=== PATIENT | female | born 1985 | race Hispanic/Latino ===

== ENCOUNTER 2017-09-12 10:29 | Observation (INO) | payer MEDICAID ==
[~2017-09-12] VITALS: Ht 157.5 cm; Wt 77.1 kg
[2017-09-12] MEDS ORDERED: PROMETHAZINE HCL 25 MG/ML 1ML AMPULE IM SCH (10:45)
[2017-09-12] MEDS: LACTATED RINGERS 1000ML IV SCH ×2 (11:10→12:21)
[2017-09-12 11:41] LABS: BASOPHILS % (AUTO) 0.3 % (0.0-5.0); EOSINOPHILS % (AUTO) 0.6 % (0.0-8.0); HEMATOCRIT 31.4 % (36-48); LYMPHOCYTES % (AUTO) 19.8 % (21.0-51.0); MEAN CORPUSCULAR HGB CONC 33.2 g/dL (32.0-36.0); MEAN CORPUSCULAR VOLUME 81.2 fL (79-99); MONOCYTES % (AUTO) 6.1 % (3.0-13.0); NEUTROPHILS % (AUTO) 73.2 % (40.0-77.0); NUCLEATED RED BLOOD CELLS 0.1 % (0.0-0.19); PLATELET COUNT (AUTO) 181 K/uL (130-400); RED BLOOD CELL COUNT(AUTO) 3.86 MIL/uL (4.00-5.50); RED CELL DISTRIBUTION WIDTH 14.5 % (11.0-15.5); WHITE BLOOD COUNT (AUTO) 8.3 K/uL (4.8-10.8)
[2017-09-12 12:13] LABS: CREATININE 0.5 mg/dL (0.5-1.5); POTASSIUM 3.7 mmol/L (3.5-5.1)
[2017-09-12 12:17] LABS: ALBUMIN 2.7 g/dL (3.5-5.0); BILIRUBIN,TOTAL 0.3 mg/dL (0.2-1.0); TOTAL PROTEIN, SERUM 6.6 g/dL (6.0-8.3)
== END 2017-09-12 12:48 | disposition home or self-care (01) ==
LOC: LDH 10:29
PROVIDERS: ADMIT Obstetrics & Gynecology; ATTEND Obstetrics & Gynecology
DX: O26.893 Other specified pregnancy related conditions, third trimester (principal); R51 Headache; Z3A.33 33 weeks gestation of pregnancy
CPT/HCPCS: 36415; 80053; 85025; 96360; 96361; 96372; 99285; G0378 ×3; J2550; J7120

== ENCOUNTER 2017-09-20 09:07 | Observation (INO) | payer MEDICAID ==
[2017-09-20] MEDS ORDERED: TERBUTALINE SULFATE VIAL 1MG/ML SQ PRN (09:45)
[2017-09-20 09:49] LABS: APPEARANCE,URINE CLOUDY (CLEAR); BILIRUBIN,URINE NEGATIVE (NEGATIVE); COLOR,URINE YELLOW (YELLOW); GLUCOSE, URINE (UA) NEGATIVE (NEGATIVE); KETONES,URINE NEGATIVE (NEGATIVE); LEUKOCYTE ESTERASE ,URINE MODERATE (NEGATIVE); NITRATE,URINE NEGATIVE (NEGATIVE); OCCULT BLOOD,URINE LARGE (NEGATIVE); PH,URINE 7.5 (5.0-8.0); PROTEIN,URINE 30 (NEGATIVE)
[2017-09-20 10:04] LABS: BACTERIA,URINE Moderate /HPF (None Seen); RBC,URINE 0-1 /HPF (0-1); SQUAMOUS EPITHELIAL CELL,UR Moderate /HPF (0-2)
[2017-09-20] MEDS ORDERED: CELESTONE SOLUSPAN 6 MG/ML 5ML VIAL IM SCH (10:45)
== END 2017-09-20 12:57 | disposition home or self-care (01) ==
LOC: LDH 09:07
PROVIDERS: ADMIT Obstetrics & Gynecology; ATTEND Obstetrics & Gynecology
DX: O26.893 Other specified pregnancy related conditions, third trimester (principal); N89.8 Other specified noninflammatory disorders of vagina; Z3A.34 34 weeks gestation of pregnancy
CPT/HCPCS: 76805; 81001; G0378 ×5; J0702; J3105; J7120; 96360

== ENCOUNTER 2017-09-22 18:27 | Inpatient (IN) | payer MEDICAID ==
[~2017-09-22] VITALS: Ht 157.5 cm; Wt 78.0 kg
[2017-09-22 19:03] LABS: APPEARANCE,URINE Clear (CLEAR); BILIRUBIN,URINE Negative (NEGATIVE); COLOR,URINE Yellow (YELLOW); GLUCOSE, URINE (UA) Negative (NEGATIVE); KETONES,URINE Negative (NEGATIVE); LEUKOCYTE ESTERASE ,URINE Large (NEGATIVE); NITRATE,URINE Negative (NEGATIVE); OCCULT BLOOD,URINE Large (NEGATIVE); PH,URINE 7.5 (5.0-8.0); PROTEIN,URINE Negative (NEGATIVE); UROBILINOGEN,URINE 0.2 mg/dL (0.2-1.0)
[2017-09-22 19:17] LABS: BACTERIA,URINE Few /HPF (None Seen)
[2017-09-22] MEDS ORDERED: LACTATED RINGERS 1000ML 1,000 ML IV PRN (19:40)
[2017-09-22] MEDS ORDERED: MAGNESIUM SULFATE 1,000 ML IV PRN (19:40)
[2017-09-22] MEDS ORDERED: TERBUTALINE SULFATE VIAL 1MG/ML SQ ONE (19:43)
[2017-09-22] MEDS ORDERED: TERBUTALINE SULFATE VIAL 1MG/ML SQ SCH (19:45)
[2017-09-22] MEDS ORDERED: CALCIUM GLUCONATE 1 GM/10 ML VIAL IV PRN (19:45)
[2017-09-22] MEDS ORDERED: MAGNESIUM 4GM PREMIX 100ML 100 ML IV SCH (19:45)
[2017-09-22] MEDS ORDERED: MAGNESIUM 4GM PREMIX 100ML 100 ML IV ONE (19:51)
[2017-09-22] MEDS: LACTATED RINGERS 1000ML 1,000 ML IV SCH (20:02)
[2017-09-22 20:06] LABS: HEMATOCRIT 29.3 % (36-48); MEAN CORPUSCULAR HEMOGLOBIN 26.8 pg (27.0-33.0); MEAN CORPUSCULAR HGB CONC 33.8 g/dL (32.0-36.0); MEAN CORPUSCULAR VOLUME 79.3 fL (79-99); PLATELET COUNT (AUTO) 207 K/uL (130-400); RED CELL DISTRIBUTION WIDTH 14.9 % (11.0-15.5); WHITE BLOOD COUNT (AUTO) 12.9 K/uL (4.8-10.8)
[2017-09-22] MEDS ORDERED: AMPICILLIN 2GM+NS 100ML 100 ML IV SCH (21:30)
[2017-09-22] MEDS ORDERED: AMPICILLIN 2GM+NS 100ML 100 ML IV ONE (21:35)
[2017-09-23] VITALS (18 sets, daily range): BP systolic 95–126; BP diastolic 52–88
[2017-09-23] MEDS ORDERED: PROMETHAZINE HCL 25 MG/ML 1ML AMPULE IM PRN ×2 (00:20→02:45)
[2017-09-23] MEDS ORDERED: MEPERIDINE-PF 50 MG/ML SYG IVP PRN (00:22)
[2017-09-23] MEDS ORDERED: MEPERIDINE-PF 50 MG/ML SYG ONE (00:29)
[2017-09-23] MEDS ORDERED: PROMETHAZINE HCL 25 MG/ML 1ML AMPULE IM ONE (00:29)
[2017-09-23] MEDS: AMPICILLIN 1GM+NS 50ML 50 ML IV SCH ×2 (01:12→05:30)
[2017-09-23] MEDS ORDERED: CITRIC ACID/SODIUM CITRATE 30 ML UDCUP ONE (01:25)
[2017-09-23] MEDS ORDERED: FENTANYL CITRATE PF 50 MCG/1 ML 2ML VIAL ONE (01:30)
[2017-09-23] MEDS ORDERED: DURAMORPH PF1 MG/ML 10ML AMP IV ONE (01:30)
[2017-09-23] MEDS ORDERED: SENSORCAINE/DEXT/PF 0.75% 2ML AMP IJ ONE (01:32)
[2017-09-23] MEDS ORDERED: CEFAZOLIN SODIUM 1 GM VIAL ONE (01:36)
[2017-09-23] MEDS ORDERED: CITRIC ACID/SODIUM CITRATE 30 ML UDCUP PO PRN (01:45)
[2017-09-23] MEDS ORDERED: CEFAZOLIN SODIUM 1 GM VIAL IVP PRN (01:45)
[2017-09-23] MEDS ORDERED: CALDOLOR 800MG+NS 250ML 250 ML IV PRN (01:45)
[2017-09-23] MEDS ORDERED: LACTATED RINGERS 1000ML 1,000 ML IV SCH (01:45)
[2017-09-23] MEDS ORDERED: BERACTANT 200MG/8ML IH ONE (01:55)
[2017-09-23] MEDS ORDERED: METHYLERGONOVINE MALEATE 0.2 MG/1 ML ML ONE (02:10)
[2017-09-23] MEDS ORDERED: MISOPROSTOL 200 MCG TABLET ONE (02:22)
[2017-09-23] MEDS ORDERED: SODIUM CHLORIDE 0.9% 10 ML VIAL ONE (02:32)
[2017-09-23] MEDS ORDERED: PHENYLEPHRINE HCL 10 MG/ML 1ML VIAL IV ONE (02:32)
[2017-09-23] MEDS ORDERED: ONDANSETRON HCL 4 MG/2 ML VIAL ONE (02:32)
[2017-09-23] MEDS ORDERED: OXYTOCIN-LR 20 UNITS/1000 ML 1,000 ML IV PRN (02:39)
[2017-09-23] MEDS ORDERED: MEPERIDINE-PF 75 MG/ML SYG IM PRN (02:45)
[2017-09-23] MEDS ORDERED: HYDROCODONE/ACETAMINOPHEN 5/325 MG TAB PO PRN ×2 (02:45)
[2017-09-23] MEDS ORDERED: DIPHENHYDRAMINE HCL 25 MG CAPSULE PO PRN ×2 (02:45→09:15)
[2017-09-23] MEDS ORDERED: LANOLIN 30GM OINTMENT TP PRN ×2 (02:45→09:15)
[2017-09-23] MEDS ORDERED: ACETAMINOPHEN-CODEINE 300/30MG TAB PO PRN (02:45)
[2017-09-23] MEDS ORDERED: MEASLES/MUMPS/RUBELLA VACCINE, LIVE 0.5 ML/VIAL SQ SCH (02:45)
[2017-09-23] MEDS ORDERED: SIMETHICONE 80 MG TAB.CHEW PO PRN (02:45)
[2017-09-23] MEDS ORDERED: SODIUM CHLORIDE 0.9% 10 ML VIAL IVP PRN (02:45)
[2017-09-23] MEDS ORDERED: DIPH,PERTUSS(ACELL),TET VAC/PF 0.5 ML VIAL IM SCH (02:45)
[2017-09-23] MEDS ORDERED: BISACODYL 10 MG SUPP.RECT RC PRN ×2 (02:45→09:15)
[2017-09-23] MEDS ORDERED: DEXTROSE 5 %-0.45 % NACL 1,000 ML IV PRN (02:45)
[2017-09-23] MEDS ORDERED: IBUPROFEN 800 MG TAB PO SCH (02:45)
[2017-09-23] MEDS: CALDOLOR 800MG+NS 250ML 250 ML IV SCH ×2 (02:50→11:09)
[2017-09-23] MEDS ORDERED: LACTATED RINGERS 1000ML 1,000 ML IV ONE (02:53)
[2017-09-23] MEDS ORDERED: OXYTOCIN 10 USP UNITS/ML ONE ×2 (02:54→04:32)
[2017-09-23] MEDS: LACTATED RINGERS 1000ML 1,000 ML IV SCH (02:58)
[2017-09-23] MEDS ORDERED: LABETALOL HCL 5 MG/ML 20ML VIAL IV ONE (03:14)
[2017-09-23] MEDS ORDERED: DOCUSATE SODIUM 100 MG CAP PO SCH (09:00)
[2017-09-23] MEDS: LIDOCAINE 5% TOPICAL PATCH TP SCH (09:08)
[2017-09-23] MEDS ORDERED: ACETAMINOPHEN EXTRA STRENGTH 500 MG TABLET PO PRN (09:15)
[2017-09-23] MEDS: MEASLES/MUMPS/RUBELLA VACCINE, LIVE 0.5 ML/VIAL SQ SCH (09:15)
[2017-09-23] MEDS: SIMETHICONE 80 MG TAB.CHEW PO PRN ×2 (16:42→20:27)
[2017-09-23] MEDS: ACETAMINOPHEN EXTRA STRENGTH 500 MG TABLET PO PRN (16:43)
[2017-09-23] MEDS: DIPH,PERTUSS(ACELL),TET VAC/PF 0.5 ML VIAL IM SCH (16:43)
[2017-09-23] MEDS: IBUPROFEN 800 MG TAB PO SCH (18:53)
[2017-09-23] MEDS: DOCUSATE SODIUM 100 MG CAP PO SCH (20:26)
[2017-09-23] MEDS: ACETAMINOPHEN-CODEINE 300/30MG TAB PO PRN (20:27)
[2017-09-24] MEDS: IBUPROFEN 800 MG TAB PO SCH ×3 (03:06→23:28)
[2017-09-24 03:50] VITALS: BP 85/51
[2017-09-24 07:07] LABS: HEMATOCRIT 26.8 % (36-48); MEAN CORPUSCULAR HEMOGLOBIN 26.3 pg (27.0-33.0); MEAN CORPUSCULAR HGB CONC 32.8 g/dL (32.0-36.0); MEAN CORPUSCULAR VOLUME 80.2 fL (79-99); NUCLEATED RED BLOOD CELLS 0.1 % (0.0-0.19); PLATELET COUNT (AUTO) 184 K/uL (130-400); RED BLOOD CELL COUNT(AUTO) 3.34 MIL/uL (4.00-5.50)
[2017-09-24 07:30] VITALS: BP 91/55
[2017-09-24 07:38] LABS: HEPATITIS Bs ANTIGEN SCREEN P Negative (Negative)
[2017-09-24] MEDS: DOCUSATE SODIUM 100 MG CAP PO SCH ×2 (08:40→21:38)
[2017-09-24] MEDS: SIMETHICONE 80 MG TAB.CHEW PO PRN ×3 (08:40→21:38)
[2017-09-24] MEDS: LIDOCAINE 5% TOPICAL PATCH TP SCH ×2 (08:40→09:00)
[2017-09-24] MEDS: ACETAMINOPHEN EXTRA STRENGTH 500 MG TABLET PO PRN (08:41)
[2017-09-24] MEDS: DIPH,PERTUSS(ACELL),TET VAC/PF 0.5 ML VIAL IM SCH (09:15)
[2017-09-24 11:24] VITALS: BP 105/59
[2017-09-24] MEDS: AMPICILLIN 1GM+NS 50ML 50 ML IV SCH (13:30)
[2017-09-24 15:52] VITALS: BP 114/67
[2017-09-24] MEDS: ACETAMINOPHEN-CODEINE 300/30MG TAB PO PRN (18:05)
[2017-09-24 20:37] VITALS: BP 106/74
[2017-09-24 23:46] VITALS: BP 109/66
[2017-09-25] MEDS: IBUPROFEN 800 MG TAB PO SCH ×2 (01:15→07:38)
[2017-09-25] MEDS: AMPICILLIN 1GM+NS 50ML 50 ML IV SCH ×3 (01:30→13:30)
[2017-09-25 04:21] VITALS: BP 116/56
[2017-09-25 08:05] VITALS: BP 106/70
[2017-09-25] MEDS: LIDOCAINE 5% TOPICAL PATCH TP SCH ×2 (08:50→09:00)
[2017-09-25] MEDS: DOCUSATE SODIUM 100 MG CAP PO SCH (08:50)
[2017-09-25] MEDS: SIMETHICONE 80 MG TAB.CHEW PO PRN (08:50)
[2017-09-25] MEDS: MEASLES/MUMPS/RUBELLA VACCINE, LIVE 0.5 ML/VIAL SQ SCH (09:15)
[2017-09-25] MEDS: DIPH,PERTUSS(ACELL),TET VAC/PF 0.5 ML VIAL IM SCH (09:15)
[2017-09-25 11:15] VITALS: BP 115/76
== END 2017-09-25 14:40 | disposition home or self-care (01) | DRG 540 ==
LOC: EDH 18:27 → LDH 18:28 → INTOOBSV 18:28 → OBSVTOIN 18:28 → WSH 09-23 02:40
PROVIDERS: ADMIT Obstetrics & Gynecology; ATTEND Obstetrics & Gynecology
PROC: 10D00Z1 Extraction of Products of Conception, Low, Open Approach (ICD-10-PCS; principal; 2017-09-23 02:09)
DX: O60.14X0 Preterm labor third trimester with preterm delivery third trimester, not applicable or unspecified (principal); O34.211 Maternal care for low transverse scar from previous cesarean delivery; Z37.0 Single live birth; O62.2 Other uterine inertia; Z3A.35 35 weeks gestation of pregnancy
CPT/HCPCS: 36415; 59510; 81001; 85027; 86592; 86850; 86900; 86901; 87340; 88307; 90707; 90715; A4314; A4344; A4450; A4606; J0290; J0690; J1741; J2175; J2210; J2274; J2370; J2405; J2550; J2590; J3010; J3105; J3475; J3490; J7120